=== PATIENT | female | born 2000 | race African-American/Black ===

== ENCOUNTER 2021-07-31 17:02 | Emergency (ER) | payer BC ==
[2021-07-31 18:43] LABS: #Basophils 0.1 thou/uL (0.0-0.2); #Eosinphils 0.2 thou/uL (0.0-0.7); #Lymphocytes 2.9 thou/uL (1.20-3.40); #Monocytes 0.5 thou/uL (0.11-0.59); #Neutrophils 2.6 thou/uL (1.40-6.50); %Basophils 1.1 % (0.0-1.0); %Eosinophils 2.5 % (0.0-10.0); %Lymphocytes 46.7 % (21.0-51.0); %Monocytes 8.1 % (0.0-10.0); %Neutrophils 41.7 % (42.0-75.0); Mean Corpuscular HGB CONC 32.4 g/dL (32.0-36.0); Mean Corpuscular Hemoglobin 28.6 pg (27.0-31.0); Mean Platelet Volume 6.5 fL (7.4-10.4); Platelet Count 321 thou/uL (130-400); RBC Distribution Width 11.8 % (11.5-14.5); Red Blood Cell (RBC) Count 4.21 mill/uL (4.20-5.40); White Blood Cell (WBC) Count 6.2 thou/uL (4.8-10.8)
[2021-07-31] MEDS ORDERED: Acetaminophen 500 MG TAB ONE (18:56)
[2021-07-31 19:00] LABS: ALT (SGPT) 11 U/L (8-55); AST (SGOT) 13 U/L (5-34); Albumin 4.1 g/dL (3.5-5.0); Alkaline Phosphatase 61 U/L (40-110); Anion Gap 10 mmol/L (10-20); BUN (Urea Nitrogen) 10 mg/dL (7.0-18.7); Bilirubin, Total 0.3 mg/dL (0.2-1.2); Calc. Creatinine Clearance 0 mL/min (70-130); Calcium 9.5 mg/dL (7.8-10.44); Carbon Dioxide 24 mmol/L (22-29); Chloride 104 mmol/L (98-107); Globulin 3.2 g/dL (2.4-3.5); Glucose 93 mg/dL (70-105); Lipase 27 U/L (8-78); Potassium 3.8 mmol/L (3.5-5.1); Protein, Total 7.3 g/dL (6.0-8.3); Sodium 134 mmol/L (136-145)
[2021-07-31 19:32] LABS: BHCG - Serum Negative (NEGATIVE)
[2021-07-31 19:33] LABS: Pregs Control Background? CLEAR/WHITE (CLR/WHITE); Pregs Control Bar Appear? YES (CONTROL BAR)
[2021-07-31] MEDS ORDERED: Ketorolac Tromethamine 30 MG/ML VIAL ONE (23:12)
[2021-07-31] MEDS ORDERED: Magnesium 2 GM/50 ML BAG (IN WATER) ONE (23:12)
[2021-07-31] MEDS ORDERED: diphenhydrAMINE 50 MG CAP ONE (23:12)
[2021-07-31] MEDS ORDERED: diphenhydrAMINE 50 MG/ML VIAL ONE (23:13)
[2021-07-31] MEDS ORDERED: Dexamethasone 4 MG TAB ONE (23:14)
[2021-08-01 17:42] LABS: SARS-CoV-2 PCR by NAA Not Detected (NotDetected)
== END 2021-07-31 22:15 | disposition home or self-care (01) ==
LOC: ERS 17:02 → EDBD 17:02 → ERS 22:15
DX: R51.9 Headache, unspecified (principal); R07.9 Chest pain, unspecified; Z20.822 Contact with and (suspected) exposure to COVID-19; M79.10 Myalgia, unspecified site; J34.89 Other specified disorders of nose and nasal sinuses; Z79.01 Long term (current) use of anticoagulants; Z87.19 Personal history of other diseases of the digestive system
CPT/HCPCS: 36415; 36416; 70450; 71045; 80053; 83690; 84484; 84703; 85025; 85379; 93005; 96374; 96375; J1200; J1885; J3475; J8540; U0003; U0005